=== PATIENT | female | born 1985 | race Caucasian/White ===

== ENCOUNTER 2020-03-02 14:40 | Emergency (ER) | payer BC, SELFPAY ==
[2020-03-02 15:11] VITALS: BP 137/84; PULSE 109; RESP 20; TEMP 36.7; O2SAT 97; BMI 34.9
--- NOTE | 2020-03-02 15:16 | XR_ITS ---
PROCEDURE: XR CHEST 2V CLINICAL HISTORY: COUGH COMPARISON: XR CHEST 2V from 08/27/2019 FINDINGS: The cardiomediastinal silhouette and pulmonary vascularity are within normal limits. The lungs are clear without infiltrates, suspicious nodules, or pleural effusions. Small nodular opacity is present in the left midlung laterally and could be due to small granuloma. No acute bony findings IMPRESSION: No acute findings. Dictated by: Roberth Tamez MD 03/02/2020 15:35 Electronically signed by Roberth Tamez MD in [place] 03/02/2020 15:35
--- NOTE | 2020-03-02 15:50 | HMH.EDUTC ---
[facility] – [place] Disposition Clinical Impression: Viral syndrome, Bronchitis Disposition: Home, Self-Care Condition on Discharge: Good Instructions: DI for Viral Syndrome, Preventing the Spread of Coronavirus Discharge Instructions Additional Instructions: Drink plenty of fluids. Take tylenol or ibuprofen for pain or fever. Take the medications as directed. Follow up with your regular doctor. GO TO THE ER FOR ANY WORSENING SYMPTOMS FOLLOW THE DIRECTIONS OF THE COVID-19 TEACHING SHEET THAT WE GAVE YOU. Prescriptions: Ondansetron [Zofran 4mg ODT] 4 mg PO Q8HP PRN #20 tab.rapdis PRN Reason: Nausea [facility] Benzonatate [Tessalon Perle 100mg Cap] 100 mg PO TIDP PRN #30 cap PRN Reason: Cough Transmission Status: Received by [facility] Azithromycin [Z-Nando 250mg Tab*] 250 mg PO UD DOSE PK #6 tab Transmission Status[facility] Referrals: Joselyn Martel [Primary Care Provider] - Time of Disposition: 15:57 Medical Decision Making - Medical Records Medical records reviewed: No: I reviewed the patient's medical records. - [place] Inquiry Pt receiving controlled substance: No Vital Signs: 03/02/20 15:11 03/02/20 15:59 Temperature 98.0 F 98.0 F Temperature Source Oral Pulse Rate 109 H Pulse Rate [Right Brachial] 109 H Respiratory Rate 20 20 Blood Pressure 137/84 Blood Pressure [Right Arm] 137/84 Blood Pressure Mean [Right Arm] 101 Blood Pressure Source [Right Arm] Automatic Cuff Blood Pressure Position [Right Arm] Sitting 02 Sat by Pulse Oximetry 97 Oxygen Delivery Method Room Air - Lab Data Lab results reviewed: Yes: I reviewed the patient's lab results. Orders (Tests/Meds): ORDERS Category Date Time Status SARS-CoV-2, MICHAEL Stat Lab 03/02/20 15:55 Received - Radiology Data #1 Image(s): Chest Image Reviewed: Yes I reviewed the patient's radiology image, Yes I have reviewed radiologist's interpretation Preliminary Findings: No Infiltrates Seen PROCEDURE: XR CHEST 2V CLINICAL HISTORY: COUGH COMPARISON: XR CHEST 2V from 08/27/2019 FINDINGS: The cardiomediastinal silhouette and pulmonary vascularity are within normal limits. The lungs are clear without infiltrates, suspicious nodules, or pleural effusions. Small nodular opacity is present in the left midlung laterally and could be due to small granuloma. No acute bony findings IMPRESSION: No acute findings. Dictated by: Roberth Tamez MD 03/02/2020 15:35 Electronically signed by Roberth Tamez MD in [place] 03/02/2020 15:35 [facility] – [place] HPI - General Stated complaint: URBANO, Abdpain ,Arti muscle pain Time Seen by Provider: 03/02/20 15:25 Mode of Arrival: Ambulatory Source of Information: Patient Limitations: No Limitations Description of Symptoms (Recalled from Triage Doc. by RN): PATIENT C/O LOSS OF TASTE, MIGRAINE, BODY ACHES, LOWER ABDOMINAL PAIN, CHILLS, LIGHT-HEADED AND DIZZINESS X 2 DAYS. DENIES FEVER OR ANY KNOWN SICK CONTACTS HEENT Symptoms (Recalled from RN notes): Yes Resp Symptoms (Recalled from RN notes): No Skin Symptoms (Recalled from RN notes): No MS Symptoms (Recalled from RN notes): Yes Functional Status (Recalled from RN notes): WNL - History of Present Illness Provider Complaint: She c/o 2 days of feeling awful. She has body aches, dry cough, sore throat, nausesa. She denies any documented fever, but she has been chilling at times. She does not know of any exposure to COVID-19, but she is afraid that is what she has. She has been trying to stay at home as much as possible, but she has been to the gas station and the grocery store a few times over the past several weeks. She does not work outside the home because she is disabled with OCD and bipolar disorder. - Related Data Previous Rx's Medication Instructions Recorded Benzonatate [Tessalon Perle 100mg 100 mg PO TID #30 cap 08/27/19 Cap] levoFLOXacin
[2020-03-02 15:59] VITALS: BP 137/84; PULSE 109; RESP 20; TEMP 36.7; O2SAT 97
[2020-03-02 19:43] LABS: Apearance,Urine Clear (Clear); Color,Urine Yellow (Yellow); PH,Urine 7.5 (5.0-8.5); Specific Gravity, Urine 1.015 (1.005-1.030)
[2020-03-02 19:44] LABS: Bilirubin,Urine Negative (Negative); Blood, Urine Negative (Negative); Glucose,Urine (UA) Negative (Negative); Ketones,Urine Negative (Negative); Protein,Urine Negative (Negative); UTC Influenza A Antigen Negative (Negative); UTC Leukocyte Esterase,Urine Trace (Negative); UTC Nitrate,Urine Negative (Negative); Urobilinogen,Urine 0.2 EU/dl (0.2)
[2020-03-02 19:45] LABS: UTC Influenza B Antigen Negative (Negative)
[2020-03-02 19:46] LABS: UTC Strep Screen (Rapid) Negative (Negative)
[2020-03-04 14:42] LABS: Covid-19 Nasal PCR Sendout Lex Not Detected
== END 2020-03-02 16:07 | disposition home or self-care (01) ==
PROVIDERS: Emergency Provider Nurse Practitioner Family; PCP Family Medicine
DX: B34.9 Viral infection, unspecified (principal); J20.9 Acute bronchitis, unspecified; G43.709 Chronic migraine without aura, not intractable, without status migrainosus; F17.210 Nicotine dependence, cigarettes, uncomplicated
CPT/HCPCS: 71046; 81003; 87804; 87880; 99202; 99203; U0004